=== PATIENT | male | born 1940 | race Hispanic/Latino ===

== ENCOUNTER 2018-10-05 06:13 | Day surgery (SDC) | payer MEDICARE ==
[2018-10-05] MEDS ORDERED: WATER FOR IRRIG STERILE IR ONE (06:32)
[2018-10-05] MEDS ORDERED: NACL 0.9% 1000 ML 1,000 ML IV SCH (07:00)
[2018-10-05] MEDS ORDERED: D50W (25GM) Syringe IV ONE ×2 (07:16→08:00)
--- NOTE | 2018-10-05 08:59 | Anesthesia Day of Surgery ---
Anesthesia Day of Surgery - Day of Surgery Patient Examined: Yes Patient H&P Reviewed: Yes Patient is NPO: Yes
--- NOTE | 2018-10-05 09:02 | Anesthesia Consultation ---
Anesthesia Consult and Med Hx Date of service: 10/05/18 - Airway Anesthetic Teeth Evaluation: Poor ROM Head & Neck: Adequate Mental/Hyoid Distance: Adequate Mallampati Class: Class II Intubation Access Assessment: Probably Good - Pre-Operative Health Status ASA Pre-Surgery Classification: ASA4 Proposed Anesthetic Plan: MAC - Pulmonary Hx Smoking: Yes Hx Asthma: No SOB: No COPD: Yes Hx Pneumonia: No Hx Sleep Apnea: Yes (CPAP) - Cardiovascular System Hx Hypertension: Yes (Severe aortic stenis, EF 15-20%, ischemic cardiomyopathy) Hx Coronary Artery Disease: Yes Hx Heart Attack/AMI: No Hx Angina: No Hx Percutaneous Transluminal Coronary Angioplasty (PTCA): Yes Hx Pacemaker: Yes Hx Internal Defibrillator: No Hx Valvular Heart Disease: No Hx Heart Murmur: No Hx Peripheral Vascular Disease: Yes - Central Nervous System Hx Seizures: No CVA: Yes (X3) Hx Back Pain: Yes Hx Psychiatric Problems: No - Gastrointestinal Hx Ulcer: No - Endocrine Hx Renal Disease: Yes (CKD) Hx Insulin Dependent Diabetes: Yes - Hematic Hx Anemia: No Hx Sickle Cell Disease: No - Other Systems Hx Alcohol Use: No Hx Substance Use: No Hx Cancer: No Hx Obesity: No
[2018-10-05] MEDS ORDERED: DIPRIVAN 10 MG/ML IV ONE (09:05)
[2018-10-05] MEDS ORDERED: WATER FOR IRRIG STERILE ONE (09:15)
--- NOTE | 2018-10-05 09:58 | Short Stay Summary ---
Short Stay Documentation - Allergies and Medications Current Medications: Allergies No Known Allergies Allergy (Verified 08/23/18 12:34) Home Medications Medication Instructions Recorded Confirmed Last Taken Type B-Complex with Vitamin C 1 needle SUB-Q QMONTH 04/16/16 10/05/18 1 Day Ago History ~04/15/16 Famotidine [Pepcid] 80 mg PO DAILY 04/16/16 10/05/18 10/04/18 History Fenofibrate 160 mg PO HS 04/16/16 10/05/18 10/04/18 History Fluticasone [Flonase] 2 spray NS QDAY 04/16/16 10/05/18 10/04/18 History Furosemide 40 mg PO DAILY 04/16/16 10/05/18 10/04/18 History Gabapentin 300 mg PO BID 04/16/16 10/05/18 10/04/18 History Insulin Aspart [NovoLOG 100 16 units SUB-Q TID 04/16/16 10/05/18 10/04/18 History UNITS/ML VIAL] Insulin Aspart [NovoLOG 100 22 units SUB-Q HS 04/16/16 10/05/18 10/04/18 History UNITS/ML VIAL] Isosorbide Dinitrate 30 mg PO BID 04/16/16 10/05/18 10/04/18 History Lantus VIAL 56 units SUB-Q QHS 04/16/16 10/05/18 10/04/18 History Latanoprost 0.005% 1 drop OU DAILY 04/16/16 10/05/18 10/03/18 History Metoprolol 25 mg PO DAILY 04/16/16 10/05/18 10/04/18 History Nitroglycerin [Nitrostat] 0.4 mg SL Q5M PRN 04/16/16 10/05/18 Unknown History Ramipril 10 mg PO DAILY 04/16/16 10/05/18 10/04/18 History Ranolazine [Ranexa] 500 mg PO BID 04/16/16 10/05/18 10/04/18 History Spironolactone 100 mg PO DAILY 04/16/16 10/05/18 10/04/18 History Vitamin D3 1,000 mg PO DAILY 04/16/16 10/05/18 10/04/18 History metFORMIN 1,000 mg PO BID 04/16/16 10/05/18 10/04/18 History Potassium Chloride [K-Dur] 20 meq PO BID #28 tab 08/24/18 10/05/18 10/04/18 Rx Apixaban [Eliquis] 1 tab PO BID 10/05/18 10/05/18 10/02/18 History Febuxostat (Nf) [Uloric (Nf)] 1 tab PO DAILY 10/05/18 10/05/18 10/04/18 History HYDROcodone/APAP 7.5-325 [[place] 1 tab PO TID PRN 10/05/18 10/05/18 10/04/18 History 7.5-325 mg TAB] Meclizine [Antivert] 1 tab PO TID 10/05/18 10/05/18 10/04/18 History Simvastatin 1 tab PO HS 10/05/18 10/05/18 10/04/18 History metOLazone [Metolazone] 1 tab PO DAILY 10/05/18 10/05/18 10/04/18 History Active Medications Sodium Chloride (Nacl 0.9% 1000 Ml) 1,000 mls @ 50 mls/hr IV DIRECT RACHEL Last Admin: 10/05/18 07:12 Dose: 50 mls/hr Documented by: - Brief post op/procedure progress note Date of procedure: 10/05/18 Pre-op diagnosis: Colon cancer screening Post-op diagnosis: same (1. Colon polyp 2. internal hemorrhoids 3. Mild post polypectomy bleed) Procedure: Colonoscopy with snare polypectomy and placement of Endoclips Anesthesia: MAC Findings: as above Surgeon: HOLGER MOLINA Estimated blood loss: none Pathology: list (1. Transverse colon polyp) Specimen disposition: to lab Condition: stable - Disposition Condition at discharge: Stable Disposition: [id number] TO HOME OR SELFCARE Short Stay Discharge Plan Activity: no restrictions Weight Bearing Status: Full Weight Bearing Diet: regular, low salt Follow up with: HAVEN GLASS MD [Primary Care Provider] - 7 Days
[2018-10-05 10:15] VITALS: BP 132/64
== END 2018-10-05 06:14 | disposition home or self-care (01) ==
LOC: GIO 06:13
PROVIDERS: ATTEND Internal Medicine Gastroenterology
DX: Z12.11 Encounter for screening for malignant neoplasm of colon (principal); D12.3 Benign neoplasm of transverse colon; K64.8 Other hemorrhoids; E11.9 Type 2 diabetes mellitus without complications; I25.10 Atherosclerotic heart disease of native coronary artery without angina pectoris; E78.00 Pure hypercholesterolemia, unspecified; I10 Essential (primary) hypertension; J44.9 Chronic obstructive pulmonary disease, unspecified; G47.30 Sleep apnea, unspecified; M19.90 Unspecified osteoarthritis, unspecified site; Z91.81 History of falling; Z82.61 Family history of arthritis; Z79.899 Other long term (current) drug therapy; Z95.0 Presence of cardiac pacemaker; Z79.84 Long term (current) use of oral hypoglycemic drugs; Z79.4 Long term (current) use of insulin; Z87.891 Personal history of nicotine dependence; Z98.42 Cataract extraction status, left eye; Z82.49 Family history of ischemic heart disease and other diseases of the circulatory system; Z86.73 Personal history of transient ischemic attack (TIA), and cerebral infarction without residual deficits
CPT/HCPCS: 45385; 82962; 88305; 96374; J7030; J2704